=== PATIENT | male | born 1985 ===

== ENCOUNTER 2020-07-30 22:08 | Emergency (ER) | payer SELFPAY ==
[~2020-07-30] VITALS: Ht 165.1 cm; Wt 106.0 kg
[2020-07-30] MEDS ORDERED: SODIUM CHLORIDE FLUSH 10ML SYR IVF ONE (23:30)
[2020-07-30 23:33] LABS: BASOPHILS % (AUTO) 1 % (0-1); EOSINOPHILS % (AUTO) 5 % (1-7); LYMPHOCYTES % (AUTO) 35 % (22-44); MEAN CORPUSCULAR HEMOGLOBIN 31.1 pg (27.5-34.5); MEAN CORPUSCULAR HGB CONC 35.5 g/dL (33.2-36.2); MEAN PLATELET VOLUME 10.5 fL (7.4-10.4); MONOCYTES % (AUTO) 7 % (2-9); NEUTROPHILS % (AUTO) 52 % (42-75); PLATELET COUNT 140 x10^3/uL (130-400); RED BLOOD COUNT 5.21 x10^6/uL (4.38-5.82); RED CELL DISTRIBUTION WIDTH 13.2 % (9.4-14.8)
[2020-07-30 23:42] LABS: MD NO
[2020-07-30 23:49] LABS: ALBUMIN 3.8 g/dL (3.4-5.0); ANION GAP 6 mmol/L (5-15); CALCIUM 8.3 mg/dL (8.5-10.1); CHLORIDE 107 mmol/L (98-107)
[2020-07-30 23:52] LABS: ALKALINE PHOSPHATASE 73 U/L (45-117); BILIRUBIN,TOTAL 0.4 mg/dL (0.2-1.0); CREATININE 1.14 mg/dL (0.7-1.3)
--- NOTE | 2020-07-30 23:56 | NUR ---
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
--- NOTE | 2020-07-31 00:07 | NUR ---
PT REPORTS COMING TO ED FOR ABDOMINAL PAIN UPPER QUADRANTS [id number]. STATES TODAY HE VOMITTED AND THERE WAS SOME BLOOD PRESENT. PT NAD, RESTING ON GURNEY, DENIES NAUSEA AT THIS TIME, DENIES DIARRHEA, VSS. PLACED ON SPO2/BP MONITORING, REPORTS 7/10 PAIN AT THIS TIME. WCTM.
[2020-07-31 00:17] LABS: ALANINE AMINOTRANSFERASE 135 U/L (12-78)
[2020-07-31 00:18] LABS: TOTAL PROTEIN 7.1 g/dL (6.4-8.2)
[2020-07-31 00:46] LABS: MICROSCOPIC NOT IND
[2020-07-31 00:55] VITALS: BP 129/80
--- NOTE | 2020-07-31 00:56 | NUR ---
Patient given discharge instructions and they have confirmed that they understand the instructions. Patient ambulatory with steady gait. NAD, DENIES ADDITIONAL NEEDS, ALL QUESTIONS ANSWERED APPROPRIATELY, NO PERSONAL BELONGINGS LEFT IN ROOM AFTER DC
[2020-07-31] MEDS ORDERED: MAALOX/HYOSCYAMINE/LIDOCAINE 45 ML BTL ONE (00:58)
[2020-07-31] MEDS ORDERED: MAALOX/HYOSCYAMINE/LIDOCAINE 45 ML BTL PO ONE (01:00)
== END 2020-07-31 01:01 | disposition home or self-care (01) ==
LOC: ED 07-31 00:55
DX: K29.00 Acute gastritis without bleeding (principal); R10.12 Left upper quadrant pain; J45.909 Unspecified asthma, uncomplicated
CPT/HCPCS: 36415; 80053; 81003; 83690; 85025; 99283